=== PATIENT | male | born 1965 | race Caucasian/White ===

== ENCOUNTER 2020-04-20 08:41 | Emergency (ER) | payer MEDICAID ==
[~2020-04-20] VITALS: Ht 170.2 cm; Wt 95.5 kg
[2020-04-20 08:54] VITALS: Ht 170.2 cm; Wt 95.5 kg
[2020-04-20] MEDS ORDERED: ULTRAM50 MG PO (09:52)
[2020-04-20] MEDS ORDERED: IBUPROFEN800 MG PO (09:52)
[2020-04-20] MEDS ORDERED: ACETAMINOPHEN500 M1 PO (09:52)
[2020-04-20] MEDS ORDERED: CYCLOBENZAPRINE10 MG PO (09:52)
[2020-04-20 10:13] VITALS: BP 132/65
== END 2020-04-20 10:14 | disposition home or self-care (01) ==
LOC: D.ER 08:41
DX: M54.5 Low back pain (principal); M79.18 Myalgia, other site; G89.29 Other chronic pain; J44.9 Chronic obstructive pulmonary disease, unspecified; Z72.0 Tobacco use